=== PATIENT | male | born 1965 ===

== ENCOUNTER 2019-06-12 20:05 | Emergency (ER) | payer OTHER ==
[~2019-06-12] VITALS: Ht 167.6 cm; Wt 108.9 kg
[~2019-06-12 20:05] MED LIST: AMOX500 PO; HYDACE5 PO
[2019-06-12] MEDS ORDERED: Augmentin 875-1 EACH PO (21:08)
[2019-06-12] MEDS ORDERED: KETO10 PO (21:08)
== END 2019-06-12 21:15 | disposition home or self-care (01) ==
LOC: ER 20:05
DX: K04.7 Periapical abscess without sinus (principal)
CPT/HCPCS: 64400; 99282-25; A9270-GY